=== PATIENT | male | born 1990 | race Caucasian/White ===

== ENCOUNTER 2023-09-18 16:06 | Emergency (ER) | payer MEDICAID ==
[~2023-09-18] VITALS: Ht 175.3 cm; Wt 77.1 kg
[2023-09-18 16:33] VITALS: BP_SYST 121; PULSE 79; RESP 17; TEMP 97.3; O2SAT 98
[2023-09-18] MEDS ORDERED: CLOT15CR5 TP (16:38)
[2023-09-18 16:43] VITALS: BP_SYST 121; PULSE 79; RESP 17; TEMP 97.3; O2SAT 98
== END 2023-09-18 16:45 | disposition home or self-care (01) ==
LOC: SED 16:06
DX: B35.3 Tinea pedis (principal); M79.672 Pain in left foot; M79.671 Pain in right foot
CPT/HCPCS: 99282